=== PATIENT | male | born 1950 | race Caucasian/White ===

== ENCOUNTER 2017-04-04 11:11 | Inpatient (IN) | payer MEDICARE ==
--- NOTE | 2017-04-04 11:36 | ED PDOC ---
HPI: General Adult Time Seen by Provider: 04/04/17 11:25 History Per: Patient, Family Onset/Duration Of Symptoms: Other (1 month) Current Symptoms Are (Timing): Intermittent Episodes Severity: Moderate Additional Complaint(s): Increasing forgetfulness, confusion and nonesensical speech x 1 month. Denies focal weakness or slurring. No dizziness or headache. Denies chest pain or palpitations NIHSS Stroke Scale - How Severe is the Stroke Level of Consciousness: 0=Alert LOC to Questions: 0=Both comments correct LOC to commands: 0=Obeys both correctly Best Gaze: 0=Normal Visual: 0=No visual loss Facial: 0=Normal Motor Arm - Left: 0=No drift Motor Arm - Right: 0=No drift Motor Leg - Left: 0=No drift Motor Leg - Right: 0=No drift Limb Ataxia: 0=Absent Sensory: 0=Normal Best Language: 0=No aphasia Dysarthia: 0=Normal articulation Extinction & Inattention (Neglect): 0=Normal, no object Score: 0 Past Medical History Vital Signs: Last Vital Signs Temp 99.1 F 04/04/17 11:18 Pulse 87 04/04/17 11:18 Resp 20 04/04/17 11:18 BP 145/75 04/04/17 11:18 Pulse Ox 96 04/04/17 11:37 - Medical History PMH: Anxiety, Depression, HTN Denies: Diabetes, Hepatitis, HIV, Seizures, Sexually Transmitted Disease - Family History Family History: States: Unknown Family Hx - Home Medications Home Medications: Ambulatory Orders Medication Instructions Recorded Amlodipine Besylate/Benazepril 1 cap PO DAILY 04/04/17 [Lotrel 10-20 mg Capsule] Benztropine [Cogentin] 1 mg PO HS 04/04/17 Mirtazapine [Remeron] 30 mg PO HS 04/04/17 Risperidone [Risperdal] 2 mg PO HS 04/04/17 buPROPion XL [Wellbutrin XL] 150 mg PO DAILY 04/04/17 clonazePAM [Klonopin] 0.5 mg PO BID 04/04/17 - Allergies Allergies/Adverse Reactions: Allergies Allergy/AdvReac Type Severity Reaction Status Date / Time No Known Allergies Allergy Unverified 02/08/15 14:01 Review of Systems ROS Statement: Except As Marked, All Systems Reviewed And Found Negative Neurological: Positive for: Change in Speech, Confusion Physical Exam - Reviewed Nursing Documentation Reviewed: Yes Vital Signs Reviewed: Yes - Physical Exam Appears: Positive for: Non-toxic, No Acute Distress Head Exam: Positive for: ATRAUMATIC, NORMAL INSPECTION, NORMOCEPHALIC Skin: Positive for: Normal Color, Warm, DRY Eye Exam: Positive for: EOMI, Normal appearance, PERRL ENT: Positive for: Normal ENT Inspection Neck: Positive for: Normal, Painless ROM Cardiovascular/Chest: Positive for: Regular Rate, Rhythm Respiratory: Positive for: CNT, Normal Breath Sounds Gastrointestinal/Abdominal: Positive for: Normal Exam, Bowel Sounds, Soft Back: Positive for: Normal Inspection Extremity: Positive for: Normal ROM Neurologic/Psych: Positive for: Alert, Oriented - Laboratory Results Result Diagrams: 04/04/17 11:50 04/04/17 11:50 - ECG O2 Sat by Pulse Oximetry: 96 Disposition - Clinical Impression Clinical Impression: Dementia - Patient ED Disposition Is Patient to be Admitted: Yes - Disposition Disposition Time: 13:36 Condition: FAIR - Pt Status Changed To: Hospital Disposition Of: Inpatient - Admit Certification Admit to Inpatient:: After my assessment, the patient will require hospitalization for at least two midnights. This is because of the severity of symptoms shown, intensity of services needed, and/or the medical risk in this patient being treated as an outpatient. - POA Present On Arrival: None
[2017-04-04 12:00] LABS: BASO # 0.1 K/uL (0.0-0.2); BASO % 0.8 % (0.0-2.0); EOS # 0.4 K/uL (0.0-0.7); EOS % 4.8 % (0.0-4.0); HEMOGLOBIN 12.4 g/dL (12.0-18.0); LYMPH # 1.3 K/uL (1.0-4.3); LYMPH % 15.6 % (20.0-40.0); MEAN CELL VOLUME 87.4 fl (80.0-94.0); MEAN CORPUSCULAR HEMOGLOBIN 29.5 pg (27.0-31.0); MEAN CORPUSCULAR HGB CONC 33.7 g/dL (33.0-37.0); MEAN PLATELET VOLUME 7.6 fl (7.2-11.7); MONO # 0.8 K/uL (0.0-0.8); MONO % 9.1 % (0.0-10.0); NEUT % 69.7 % (50.0-75.0); NRBC % 0.1 % (0.0-0.0); RBC 4.21 Mil/uL (4.40-5.90); WHITE BLOOD COUNT 8.7 K/uL (4.8-10.8)
[2017-04-04 12:13] LABS: ALB/GLOB RATIO 1.6 (1.0-2.1); ALBUMIN 4.4 g/dL (3.5-5.0); ALT/SGPT 36 U/L (21-72); AST/SGOT 20 U/L (17-59); BLOOD UREA NITROGEN 9 mg/dl (9-20); GFR AFRICAN-AMERICAN > 60; GFR NON-AFRICAN AMERICAN > 60
--- NOTE | 2017-04-04 12:30 | CT ---
PROCEDURE: CT HEAD WITHOUT CONTRAST. HISTORY: r/o bleed COMPARISON: None available. TECHNIQUE: Axial computed tomography images were obtained through the head/brain without intravenous contrast. Radiation dose: Total exam DLP = 778.31 MGy-cm. This CT exam was performed using one or more of the following dose reduction techniques: Automated exposure control, adjustment of the mA and/or kV according to patient size, and/or use of iterative reconstruction technique. FINDINGS: HEMORRHAGE: No intracranial hemorrhage. BRAIN: No mass effect or edema. Intracranial atherosclerotic calcifications. Scattered periventricular and subcortical white matter hypodensities, which are nonspecific, but often seen with chronic microvascular ischemic disease. Please note that MRI with diffusion imaging is more sensitive in the detection of acute ischemic event. VENTRICLES: No hydrocephalus. CALVARIUM: Unremarkable. PARANASAL SINUSES: Unremarkable as visualized. No significant inflammatory changes. MASTOID AIR CELLS: Unremarkable as visualized. No inflammatory changes. OTHER FINDINGS: None. IMPRESSION: Scattered nonspecific white matter changes.
--- NOTE | 2017-04-04 13:32 | RAD ---
HISTORY: psych COMPARISON: Chest x-ray performed 11/05/12 TECHNIQUE: Chest PA and lateral FINDINGS: Examination limited by habitus. LUNGS: Medial right lower lobe atelectasis. Tenting of the right hemidiaphragm may be related to atelectasis or scarring. Please note that chest x-ray has limited sensitivity for the detection of pulmonary masses. PLEURA: No significant pleural effusion identified. No definite pneumothorax . CARDIOVASCULAR: Heart size appears top normal. Ectatic aorta. OSSEOUS STRUCTURES: Degenerative changes. VISUALIZED UPPER ABDOMEN: Unremarkable. OTHER FINDINGS: None. IMPRESSION: Medial right lower lobe atelectasis. Tenting of the right hemidiaphragm may be related to atelectasis or scarring.
[2017-04-04 15:01] VITALS: O2SAT 97
[2017-04-04 15:07] LABS: BARBITURATES, UR NEGATIVE (NEGATIVE); BENZODIAZEPINES, UR NEGATIVE (NEGATIVE); OPIATES, UR NEGATIVE (NEGATIVE); PHENCYCLIDINE, UR NEGATIVE (NEGATIVE)
--- NOTE | 2017-04-04 15:51 | CARD ---
APPROVED REPORT EKG Measurement Heart [id number] <Conclusion> Normal sinus rhythm Normal ECG
[2017-04-04] MEDS ORDERED: Alum-Mag Hydrox-Simethicone Susp (30 mL) PO PRN (16:48)
[2017-04-04] MEDS ORDERED: Bismuth Subsalicylate 262 mg/15 ml Sus (240 ml) PO PRN (16:50)
[2017-04-04] MEDS ORDERED: Magnesium Hydroxide Susp 30 ml UD PO PRN (19:46)
[2017-04-05 07:24] LABS: HEMOGLOBIN 13.7 g/dL (12.0-18.0); MEAN CELL VOLUME 86.5 fl (80.0-94.0); MEAN CORPUSCULAR HEMOGLOBIN 29.3 pg (27.0-31.0); MEAN CORPUSCULAR HGB CONC 33.9 g/dL (33.0-37.0); RBC 4.68 Mil/uL (4.40-5.90); RED CELL DISTRIBUTION WIDTH 13.8 % (11.5-14.5); WHITE BLOOD COUNT 7.2 K/uL (4.8-10.8)
[2017-04-05 07:39] LABS: ALB/GLOB RATIO 1.5 (1.0-2.1); ALBUMIN 4.5 g/dL (3.5-5.0); ALT/SGPT 28 U/L (21-72); AST/SGOT 21 U/L (17-59); BLOOD UREA NITROGEN 11 mg/dl (9-20); CALCIUM 9.4 mg/dL (8.4-10.2); GFR AFRICAN-AMERICAN > 60; GFR NON-AFRICAN AMERICAN > 60
[2017-04-05 07:59] LABS: FERRITIN 49.6 ng/mL
[2017-04-05] MEDS: BENAZEPRIL PO SCH (08:54)
[2017-04-05] MEDS: AMLODIPINE BESYLATE PO SCH (08:54)
[2017-04-05] MEDS: buPROPion SR 150 MG TABLET PO SCH (08:54)
[2017-04-05] MEDS ORDERED: AMLODIPINE BESYLATE PO SCH (09:00)
[2017-04-05] MEDS ORDERED: BENAZEPRIL PO SCH (09:00)
[2017-04-05 13:44] LABS: FOLATE 4.5 ng/mL
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
[2017-04-06 08:40] LABS: ALB/GLOB RATIO 1.4 (1.0-2.1); ALBUMIN 4.7 g/dL (3.5-5.0); ALT/SGPT 29 U/L (21-72); AST/SGOT 28 U/L (17-59); BLOOD UREA NITROGEN 12 mg/dl (9-20); CALCIUM 9.4 mg/dL (8.4-10.2); GFR AFRICAN-AMERICAN > 60; GFR NON-AFRICAN AMERICAN > 60
[2017-04-06] MEDS: buPROPion SR 150 MG TABLET PO SCH (09:09)
[2017-04-06] MEDS: BENAZEPRIL PO SCH (09:10)
[2017-04-06] MEDS: AMLODIPINE BESYLATE PO SCH (09:10)
[2017-04-06 09:41] LABS: T4 8.19 ug/dl (5.5-11.0)
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
--- NOTE | 2017-04-06 14:25 | PCM.PYCHPN ---
Psychiatric Progress Note - Psychiatric Progress Note Patient seen today, length of contact: chart reviewed case discussed with staff Patient Chief Complaint: pt reports was being forgetful, was feeling dizzy Problems Identified/Issues Discussed: alteration in mood alteration in cognition ?alteration in circulation Medical Problems: ct reviewed and pt has been consulted by neurology-consult appreciated Diagnostic Results: per psychiatry per medicine per nursing per social media marketing analyst per recreational therapy DSM 5 Symptoms Update: alteration in cognition, alteration in mood Medication Change: No Medical Record Reviewed: Yes Consults ordered or reviewed: neurology consult appreciated Mental Status Examination - Cognitive Function Orientation: Person, Place, Situation, Time Attention: WNL Concentration: WNL Association: [facility] Fund of Knowledge: [facility] Decription of patient's judgement and insights: impaired - Mood Mood: Depressed, Anxious - Affect Affect: Constricted - Speech Speech: Soft Additional comments: Belgian, Kosovan - Formal Thought Process Formal Thought Process: Hallucinations - Homicidal Ideation Homicidal Ideation: No Goal/Treatment Plan - Goal/Treatment Plan Need for Continued Stay: Discharge may exacerbated symptoms Progress Toward Problem(s) and Goals/Treatment Plan: inpt adm/milieu therapy vital signs clinical observation per protocol and per clinical status Kosovan spoken per pt lead (speaks both Belgian and Kosovan) pt to followed by hospitalist neurologist saw pt today/ct reviewed/further neurological tests ordered by neurologist-dr mcwilliams adjust medications per status discharge planning in progress likely to include referral back to [facility] Estimated Date of D/C: 04/09/17 - Smoking Cessation Smoking Cessation Initiated: No Reason for not providing: deferred
[2017-04-06 16:16] LABS: CORTISOL AM 8.4 ug/dL (4.46-22.7)
--- NOTE | 2017-04-06 20:23 | PN ---
LOCATION: Room #308 SUBJECTIVE: This is a 67-year-old male with underlying major depressive disorder, admitted with acute exacerbation of the same and altered mental status with increasing disorientation and confusion as noted. He remains clinically euthyroid at this time and the latest thyroid study shows a T4 of 8.19 with a TSH of 1.13. Initial free T4 of 0.71 with a normalized level of 9.51, so at this time, we will continue the same psychotropic management as ordered and we will obtain serial chemistries and supplement accordingly as needed. We will also obtain serial thyroid studies, but would expect improvement of his biochemical indices as his clinical condition improves. He is actually on a multiple combination of psychotropic medications as noted. We will obtain serial chemistries and supplement accordingly as needed. We will follow. Lexy Ni MD
[2017-04-07] MEDS: buPROPion SR 150 MG TABLET PO SCH (08:49)
--- NOTE | 2017-04-07 12:22 | PCM.PYCHPN ---
Psychiatric Progress Note - Psychiatric Progress Note Patient seen today, length of contact: Patient evaluated, case discussed with team, chart reviewed, 35 min Patient Chief Complaint: "They said something is wrong with my speech" Problems Identified/Issues Discussed: Patient reports that his mood is improving. He last heard auditory hallucinations last night, but stated that they are improving and he does not find them distressful. He denies current depression/anxiety. No SI/HI. Tool Room Lathe Operator discussed increasing the Risperdal with the patient for his continued psychosis, but he is not agreeable at this time. We discussed waiting for the results of his neurological studies before further psychiatric medication modifications. Medication Change: No Medical Record Reviewed: Yes Consults ordered or reviewed: Neurology consult, Endocrinology consult Mental Status Examination - Cognitive Function Orientation: Person, Place, Situation, Time Attention: WNL Concentration: WNL Association: WNL Fund of Knowledge: WNL - Mood Mood: Neutral - Affect Affect: Constricted - Speech Speech: Soft - Formal Thought Process Formal Thought Process: Hallucinations Psychotic Thoughts and Behaviors: +Intermittent AH - Suicidal Ideation Suicidal Ideation: No - Homicidal Ideation Homicidal Ideation: No Goal/Treatment Plan - Goal/Treatment Plan Need for Continued Stay: Remain at risks for inpatient hospitalization, Discharge may exacerbated symptoms Progress Toward Problem(s) and Goals/Treatment Plan: MDD w/ psychosis; MOOSE; r/o acute neurological dysfunction and/or vascular dementia -Continue Wellbutrin SR 150 mg PO Daily, Remeron 30 mg pO HS, Benztropine 1 mg PO HS, Risperdal 2 mg PO HS -Neurology consult appreciated; pending MRI Brain w/ wo contrast and MRA head/ neck -Endocrinology consult appreciated -Individual and group therapy -Disposition planning Estimated Date of D/C: 04/09/17
[2017-04-07] MEDS ORDERED: Gadodiamide 287 MG/ML VIAL (15ML) IV ONE (18:56)
--- NOTE | 2017-04-07 23:21 | PN ---
DATE: SUBJECTIVE: This is a 67-year-old male with recent psychotic breakthrough and major depression with supervening behavioral disturbances and is now undergoing close psychiatric evaluation and management and is also being followed closely for metabolic management because of abnormal thyroid function studies. He remains clinically euthyroid at this time and biochemically the repeat thyroid indices showed a T4 of 8.19 with a free T4 of 0.95, and a TSH of 1.13. The initial free T4 was low at 0.71. His chemistry showed a BUN of 12, sodium 142, potassium 3.8, chloride 103, CO2 of 27, glucose 96, and creatinine 1.2. ASSESSMENT: This is a 67-year-old male with recent major depression and psychotic breakthrough in the background of chronic schizoaffective disorder and is now undergoing close psychiatric evaluation and management. He is also clinically and biochemically euthyroid at this time with a superimposed acute sick euthyroid syndrome, which is transient and should improve as his clinical condition improves accordingly. There is no indication at this time for any kind of thyroid pharmacotherapy. We will continue the serial chemistries that will be obtained and we will also continue the serial thyroid studies accordingly. We will follow with you. Lexy Ni MD
[2017-04-08] MEDS: buPROPion SR 150 MG TABLET PO SCH (08:59)
--- NOTE | 2017-04-08 12:20 | MRI ---
PROCEDURE: MR Angiography of the neck without contrast HISTORY: white matter disease COMPARISON: None available. TECHNIQUE: 3D [id number]-[id number] angiography of the neck was performed. Rotating maximum intensity projection images of the cervical carotid and vertebral arteries were generated. The origins of the common carotid arteries were not visualized, which is a limitation inherent to the non-contrast time of flight technique. FINDINGS: RIGHT CAROTID ARTERIES: Common Carotid Artery: Normal. Carotid Bifurcation: Normal. Internal Carotid Artery:Normal. External Carotid Artery (proximal branches): Normal. LEFT CAROTID ARTERIES: Common Carotid Artery: Normal. Carotid Bifurcation: Limited atherosclerotic plaque suspected at the carotid bulb region. Internal Carotid Artery:Normal. External Carotid Artery (proximal branches): Normal. VERTEBRAL ARTERIES: Right Vertebral Artery: Normal. Left Vertebral Artery: Normal. OTHER FINDINGS: None. IMPRESSION: No significant stenosis identified in the bilateral cervical common or internal carotid artery segments. Limited atherosclerotic plaque suspected at the left carotid bulb.
--- NOTE | 2017-04-08 12:24 | MRI ---
PROCEDURE: Magnetic Resonance Angiography Brain HISTORY: facial droop and WMD COMPARISON: None available. TECHNIQUE: 3D time of flight MR angiography of the intracranial arteries was performed. Rotating maximum intensity projection images were generated. FINDINGS: INTERNAL CEREBRAL ARTERIES: Unremarkable. The skull base, petrous, cavernous and supraclinoid segments are bilaterally widely patient. ANTERIOR CEREBRAL ARTERIES: Unremarkable. A1 and A2 segments are widely patent. Smaller distal branches unremarkable, as visualized. MIDDLE CEREBRAL ARTERIES: Unremarkable. M1 and M2 segments are widely patent. Perisylvian branches grossly symmetric. POSTERIOR CIRCULATION: Basilar Artery: Unremarkable. Distal Vertebral Arteries: Unremarkable. Posterior Cerebral Arteries: Mild iboo-bl-tyqrkzik stenosis of the proximal right posterior cerebral artery appreciated. Posterior Inferior Cerebellar Arteries: Unremarkable. ANEURYSM/ VASCULAR MALFORMATIONS: None. 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 Yes IMPRESSION: A pvyk-vp-lzyfjbuj stenosis of the proximal right cerebral artery is identified with remainder the examination unremarkable. No yes arteriovascular malformation or aneurysm is identified.
--- NOTE | 2017-04-08 12:27 | MRI ---
PROCEDURE: MRI BRAIN WITH AND WITHOUT CONTRAST HISTORY: left facial droop and memory changes COMPARISON: None. TECHNIQUE: Multiplanar, multisequence MR images of the brain were obtained with and without intravenous contrast enhancement. FINDINGS: HEMORRHAGE: None DWI: No evidence of an acute or early subacute infarction. BRAIN PARENCHYMA: No mass, mass effect or cortical edema. Gocw-gr-qtblubib diffuse cerebral atrophy and chronic microangiopathy are identified with the brain parenchyma above and below the tentorium otherwise unremarkable appearing. ENHANCEMENT: No abnormal intracranial enhancement. VENTRICLES: Unremarkable. No hydrocephalus. CRANIUM: Unremarkable. ORBITS: Grossly unremarkable. PARANASAL SINUSES/MASTOIDS: Limited mucosal inflammatory changes in the right maxillary sinus. VASCULAR SYSTEM: Skull base flow voids intact. OTHER FINDINGS: None . IMPRESSION: Mild to moderate age related neuro degenerate change are appreciate which appear age-appropriate at. The brain is otherwise unremarkable. No abnormal intracranial enhancement is encountered. Limited right mastoid sinus disease appreciated incidentally.
--- NOTE | 2017-04-08 12:29 | PCM.PYCHPN ---
Psychiatric Progress Note - Psychiatric Progress Note Patient seen today, length of contact: Patient evaluated, case discussed with team, chart reviewed, 35 min Patient Chief Complaint: "I'm feeling better." Problems Identified/Issues Discussed: Patient reports that his mood is improving. He denies current AH, last heard two nights ago. He denies current depression/anxiety. No SI/HI. Patient reports that he does have difficulty with his memory at times. He is not agreeable to modifying his psychiatric medications at this time. Medication Change: No Medical Record Reviewed: Yes Consults ordered or reviewed: Neurology consult Mental Status Examination - Cognitive Function Orientation: Person, Place, Situation, Time Decription of patient's judgement and insights: Fair I/J - Mood Mood: Neutral - Affect Affect: Constricted - Speech Speech: Soft - Formal Thought Process Formal Thought Process: No Impairment Psychotic Thoughts and Behaviors: Denies current AH - Suicidal Ideation Suicidal Ideation: No - Homicidal Ideation Homicidal Ideation: No Goal/Treatment Plan - Goal/Treatment Plan Need for Continued Stay: Remain at risks for inpatient hospitalization, Discharge may exacerbated symptoms Progress Toward Problem(s) and Goals/Treatment Plan: MDD w/ psychosis; MOOSE; r/o acute neurological dysfunction and/or vascular dementia -Continue Wellbutrin SR 150 mg PO Daily, Remeron 30 mg pO HS, Benztropine 1 mg PO HS, Risperdal 2 mg PO HS -Neurology consult appreciated; pending results of MRI Brain w/ wo contrast and MRA head/neck -Endocrinology consult appreciated -Individual and group therapy -Disposition planning- likely discharge tomorrow if patient is neurologically stable; patient has been improving psychiatrically Estimated Date of D/C: 04/09/17
[2017-04-08] MEDS ORDERED: Nasal Spray(Ocean spray) NAS PRN (22:56)
--- NOTE | 2017-04-09 05:23 | PN ---
ROOM: 308. SUBJECTIVE: This is a 67-year-old male with recent major depressive disorder and associated behavioral disturbances with also concomitant early dementia and is also being followed closely for metabolic management because of abnormal thyroid studies as noted. He remains clinically euthyroid at this time and also the repeat thyroid indicis confirmed presence of the so called acute sick euthyroid syndrome and he remains biochemically euthyroid also at this time. The latest chemistry showed BUN of 12, sodium 142, potassium 3.3, chloride 103, CO2 27, glucose , creatinine 1.2. His thyroid status showed a T4 of 8.19 with TSH of 1.13 and free T4 of 0.95. So, at this time, we will continue the serial chemistries to be obtained as a serial thyroid study and expect normalization of the aforementioned accordingly. No indications to any kind of thyroid pharmacotherapy therapy. We will follow and advise accordingly. Lexy Ni MD cc:
[2017-04-09 06:11] VITALS: BP 142/77; PULSE 80; RESP 18; TEMP 97.9
[2017-04-09] MEDS: buPROPion SR 150 MG TABLET PO SCH (08:44)
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
--- NOTE | 2017-04-09 23:18 | PN ---
DATE: ROOM: 308. SUBJECTIVE: This is a 67-year-old male with recent admission to the psychiatric unit with major depression and associated behavioral disturbances and is now being followed closely for metabolic management because of abnormal thyroid function studies. His latest thyroid study showed the T4 now of 8.19 with a free T4 of 0.95 and TSH of 1.13. The initial free T4 was 0.71. The aforementioned thyroid indices are indicative of the so called acute sick euthyroid syndrome which is temporary and should improve as his clinical condition improves accordingly. There is no indication at this time for any kind of thyroid therapy. We will obtain serial chemistry and supplement accordingly as needed. We will also obtain serial thyroid studies as indicated. Lexy Ni MD
== END 2017-04-09 14:00 | disposition home or self-care (01) | DRG 885 ==
LOC: H.ER 11:11 → SUPCPDRO 11:11 → H.ERHOLD 13:35 → H.STEP 15:53
PROVIDERS: ADMIT Psychiatry & Neurology Psychiatry; ATTEND Psychiatry & Neurology Psychiatry
PROC: GZHZZZZ Group Psychotherapy (ICD-10-PCS; principal; 2017-04-04)
PROC: GZ58ZZZ Individual Psychotherapy, Cognitive-Behavioral (ICD-10-PCS; 2017-04-05)
DX: F32.3 Major depressive disorder, single episode, severe with psychotic features (principal); F01.51 Vascular dementia, unspecified severity, with behavioral disturbance; E07.81 Sick-euthyroid syndrome; F41.1 Generalized anxiety disorder; I10 Essential (primary) hypertension; E78.5 Hyperlipidemia, unspecified; Z79.82 Long term (current) use of aspirin